=== PATIENT | female | born 2000 | race Caucasian/White ===

== ENCOUNTER 2021-08-15 12:20 | Outpatient (CLI) | payer OTHER | END 2021-08-15 12:21 | disposition home or self-care (01) | LOC: CSHRAD 12:20 → EDBD 12:20 → CSHRAD 12:21 | PROVIDERS: ATTEND Anesthesiology Pain Medicine | DX: T85.122A Displacement of implanted electronic neurostimulator of spinal cord electrode (lead), initial encounter (principal) | CPT/HCPCS: 70260; 72040 ==